=== PATIENT | female | born 1995 | race Hispanic/Latino ===

== ENCOUNTER 2023-11-18 11:06 | Day surgery (SDC) | payer OTHER ==
[2023-11-18] MEDS ORDERED: hydrALAZINE 20 MG/ML VIAL SLOW IVP PRN (11:59)
[2023-11-18 12:04] VITALS: BMI 32.0
[2023-11-18 12:21] LABS: Fetal Membranes Rupture No Membranes Rupture (No Rupture)
== END 2023-11-18 13:30 | disposition home or self-care (01) ==
LOC: CSHLD/OP 11:06
PROVIDERS: ATTEND Obstetrics & Gynecology
DX: O47.03 False labor before 37 completed weeks of gestation, third trimester (principal); Z3A.36 36 weeks gestation of pregnancy; Z79.899 Other long term (current) drug therapy
CPT/HCPCS: 84112; 87480; 87510; 87660

== ENCOUNTER 2023-12-08 14:02 | Day surgery (SDC) | payer OTHER ==
[2023-12-08 14:26] VITALS: BMI 33.7
[2023-12-08] MEDS ORDERED: hydrALAZINE 20 MG/ML VIAL SLOW IVP PRN (15:38)
== END 2023-12-08 15:42 | disposition home or self-care (01) ==
LOC: CSHLD/OP 14:02
PROVIDERS: ATTEND Obstetrics & Gynecology
DX: O47.1 False labor at or after 37 completed weeks of gestation (principal); O26.853 Spotting complicating pregnancy, third trimester; Z79.899 Other long term (current) drug therapy; Z98.890 Other specified postprocedural states; Z3A.39 39 weeks gestation of pregnancy

== ENCOUNTER 2023-12-10 00:46 | Inpatient (IN) | payer OTHER ==
[2023-12-10 01:21] VITALS: BMI 33.7
[2023-12-10] MEDS: Lactated Ringer's 1,000 ML IV SCH (01:51)
[2023-12-10 02:24] LABS: Hematocrit 36.5 % (34.9-44.5); Hemoglobin 12.2 g/dL (12.0-15.5); Mean Corpuscular HGB CONC 33.4 g/dL (32.0-36.0); Mean Corpuscular Volume 86.9 fL (81.6-98.3); Mean Platelet Volume 10.1 fL (7.4-10.4); Platelet Count 298 10x3/uL (150-450); RBC Distribution Width 15.9 % (11.5-14.5); White Blood Cell (WBC) Count 11.6 10x3/uL (3.5-10.5)
[2023-12-10 02:47] LABS: Syphilis Antibody Nonreactive (Nonreactive); Syphilis Antibody Index 0.06 S/CO (<1.00 Non-Reactive)
[2023-12-10 02:49] LABS: HBsAg Index 0.19 S/CO (0-0.99); Hep B Surf Ag - L&D Non-Reactive S/CO (NonReactive)
[2023-12-10] MEDS: fentaNYL/Ropivacaine Epidural 100 ML ONE (02:52)
[2023-12-10] MEDS ORDERED: Promethazine HCl 25 MG/ML VIAL IM PRN ×2 (02:55→03:15)
[2023-12-10] MEDS ORDERED: Acetaminophen 325 MG TAB PO PRN (02:55)
[2023-12-10] MEDS ORDERED: diphenhydrAMINE 50 MG/ML VIAL IVP PRN (02:55)
[2023-12-10] MEDS ORDERED: Ondansetron PF 4 MG/2 ML Vial IVP PRN (02:55)
[2023-12-10] MEDS ORDERED: Moisturizing Cream (Eucerin) 113 GM JAR TOP PRN (02:55)
[2023-12-10] MEDS ORDERED: ePHEDrine Sulfate 50 MG/10 ML VIAL SLOW IVP PRN (02:55)
[2023-12-10] MEDS ORDERED: Lactated Ringer's 500 ML IV PRN (02:55)
[2023-12-10] MEDS ORDERED: Naloxone HCl 0.4 mg/ml Vial IVP PRN ×2 (02:55)
[2023-12-10] MEDS ORDERED: Communication Order-Pharmacy FS SCH (03:00)
[2023-12-10] MEDS ORDERED: fentaNYL 2 mcg/Ropivacaine 0.2% Epidural 100 ML CADD EPIDURAL SCH (03:00)
[2023-12-10] MEDS ORDERED: Diphenoxylate HCl/Atropine Tablet PO PRN ×2 (03:15)
[2023-12-10] MEDS ORDERED: Methylergonovine 0.2 MG/ML VIAL IM PRN (03:15)
[2023-12-10] MEDS ORDERED: hydrALAZINE 20 MG/ML VIAL SLOW IVP PRN ×2 (03:15→17:11)
[2023-12-10] MEDS ORDERED: Misoprostol 200 MCG TAB RC PRN (03:15)
[2023-12-10] MEDS ORDERED: Lidocaine 1% (PF) 30 ML VIAL SC PRN (03:15)
[2023-12-10] MEDS ORDERED: HYDROcodone/Acetaminophen 5/325 mg Tablet PO PRN ×2 (03:15)
[2023-12-10] MEDS ORDERED: Acetaminophen 500 MG TAB PO PRN (03:15)
[2023-12-10] MEDS ORDERED: Carboprost 250 MCG/ML AMP IM PRN (03:15)
[2023-12-10] MEDS ORDERED: Tranexamic Acid 1,000 MG/10 ML VIAL IVP PRN (03:16)
[2023-12-10] MEDS: Ondansetron PF 4 MG/2 ML Vial IVP PRN (10:05)
[2023-12-10] MEDS: Oxytocin 30 units/NS 500 ML 500 ML IV SCH (10:05)
[2023-12-10] MEDS ORDERED: traMADol HCl 50 MG TAB PO PRN (17:11)
[2023-12-10] MEDS ORDERED: Milk Of Magnesia 30 ML UDCUP PO PRN (17:11)
[2023-12-10] MEDS ORDERED: Boostrix 0.5 ML (Tdap) VIAL (>/=7 yrs of age) IM ONE (17:11)
[2023-12-10] MEDS ORDERED: diphenhydrAMINE 25 MG CAP PO PRN (17:11)
[2023-12-10] MEDS ORDERED: Bisacodyl 10 MG SUPP PR PRN (17:11)
[2023-12-10] MEDS ORDERED: Benzocaine-Menthol 82.5 ML CAN TOP PRN (17:11)
[2023-12-10] MEDS ORDERED: Preparation H Ointment 28 GM TUBE PR PRN (17:11)
[2023-12-10] MEDS ORDERED: Lanolin Ointment 7 GM TUBE TOP PRN (17:11)
[2023-12-10] MEDS: Oxytocin 30 units/NS 500 ML 500 ML IVPB SCH (17:27)
[2023-12-10] MEDS: fentaNYL 50 mcg/mL 1 mL Vial ONE (18:17)
[2023-12-10] MEDS: Ibuprofen 800 MG TAB PO PRN (19:24)
[2023-12-11] MEDS: Docusate 100 MG CAP PO SCH (08:59)
[2023-12-11] MEDS: Prenatal Vitamin 1 TAB PO SCH (08:59)
[2023-12-11] MEDS: Ferrous Sulfate 325 MG TAB PO SCH (08:59)
[2023-12-11] MEDS: Ibuprofen 800 MG TAB PO SCH (11:21)
[2023-12-12 08:23] VITALS: BP 98/57; TEMP 97.7
== END 2023-12-12 14:49 | disposition home or self-care (01) | DRG 807 ==
LOC: CSHLD/OP 00:46 → CSHLD 01:58 → CSHPED 19:35
PROVIDERS: ADMIT Obstetrics & Gynecology; ATTEND Obstetrics & Gynecology
PROC: 10E0XZZ Delivery of Products of Conception, External Approach (ICD-10-PCS; principal; 2023-12-10)
PROC: 0HQ9XZZ Repair Perineum Skin, External Approach (ICD-10-PCS; 2023-12-10)
DX: O70.1 Second degree perineal laceration during delivery (principal); Z37.0 Single live birth; Z3A.39 39 weeks gestation of pregnancy
CPT/HCPCS: 36415; 51702; 85027; 86780; 86850; 86900; 86901; 87340; 99285; J2405; J2590; J7120